=== PATIENT | female | born 1940 | race Caucasian/White ===

== ENCOUNTER 2016-07-22 13:03 | Emergency (ER) | payer MEDICARE, OTHER ==
[~2016-07-22] VITALS: Ht 167.6 cm; Wt 101.0 kg
[~2016-07-22 13:03] MED LIST: ALBUTEROL; ATOR10TA PO; B COMPLEX; CALC-993 PO; CHOL200016 PO; CLOP75TA2 PO; DIPH25CA83 PO; DULO30CA2; FERR-43 PO; FLUT1DIS PO; HYDROCODONE; IRON; ISOS60TA PO; LORA10CA PO; MONT10TA21; MULTI; MULTI COMPLETE PO; NASOI; NITR0.4T; OMEP20CA10 PO; PREG300C PO; PXPC5 PO; TRAZODONE PO; VICODIN; VIT B 12 PO; [UNRECOGNIZED DRUG - OTHER]; [UNRECOGNIZED DRUG - OTHER] PO
[2016-07-22] MEDS ORDERED: ACETAMINOPHEN WITH CODEINE 300/30MG TABLET PO ONE (14:00)
[2016-07-22 15:17] VITALS: BP 135/68
== END 2016-07-22 15:18 | disposition home or self-care (01) ==
LOC: ER 13:04
DX: S20.211A Contusion of right front wall of thorax, initial encounter (principal); X58.XXXA Exposure to other specified factors, initial encounter; Y93.89 Activity, other specified; Y92.89 Other specified places as the place of occurrence of the external cause; J44.9 Chronic obstructive pulmonary disease, unspecified; Z88.8 Allergy status to other drugs, medicaments and biological substances; Z87.892 Personal history of anaphylaxis; Z88.0 Allergy status to penicillin; Z88.2 Allergy status to sulfonamides; Z88.6 Allergy status to analgesic agent; Z79.899 Other long term (current) drug therapy; I25.10 Atherosclerotic heart disease of native coronary artery without angina pectoris; Z95.1 Presence of aortocoronary bypass graft; Z98.84 Bariatric surgery status; F17.211 Nicotine dependence, cigarettes, in remission
CPT/HCPCS: 71010; 99283

== ENCOUNTER 2017-07-24 15:14 | Emergency (ER) | payer MEDICARE ==
[~2017-07-24] VITALS: Ht 167.6 cm; Wt 98.0 kg
[~2017-07-24 15:14] MED LIST changes: +CLOP75TA16 PO; -CLOP75TA2 PO
[2017-07-24 18:22] VITALS: BP 139/77
== END 2017-07-24 18:23 | disposition home or self-care (01) ==
LOC: ER 16:14
DX: M13.861 Other specified arthritis, right knee (principal); J44.9 Chronic obstructive pulmonary disease, unspecified; Z90.49 Acquired absence of other specified parts of digestive tract; Z98.84 Bariatric surgery status; Z88.6 Allergy status to analgesic agent; Z88.2 Allergy status to sulfonamides; Z88.0 Allergy status to penicillin; Z87.891 Personal history of nicotine dependence; Z88.8 Allergy status to other drugs, medicaments and biological substances
CPT/HCPCS: 73560; 99284